=== PATIENT | female | born 1965 | race Caucasian/White ===

== ENCOUNTER 2016-09-15 12:35 | Observation (INO) ==
[2016-09-15] MEDS ORDERED: Ondansetron ODT 4 MG TAB.RAPDIS SL ONE ×2 (13:23→14:45)
--- NOTE | 2016-09-15 13:23 | Emergency Department Note ---
Disposition Clinical Impression: Chest pain Qualifiers: Chest pain type: precordial pain Qualified Code(s): R07.2 - Precordial pain Disposition: Admitted As Inpatient Condition: Fair Time of Disposition: 14:52 Chest Pain HPI - General Chief Complaint: ED Chest Pain Stated Complaint: chest pain Time Seen by Provider: 09/15/16 12:44 Source: patient Mode of arrival: ambulatory Limitations: no limitations Vital Signs Reviewed: Yes Nursing Notes Reviewed: Yes - History of Present Illness HPI Narrative: 51-year-old female pack per day smoker and COPD presents to the ED with chest pain. She was seen by her primary care physician today Dr. Nichols complaining of chest pain for over 2 weeks, last episode at 1000 this morning. She has been also feeling more fatigued and lightheaded as well during the past 2 weeks with decreased appetite. Reports intermittent left-sided chest pain with minimal exertion that feels like something is sitting on her chest, with radiation upper neck and down her left shoulder. Feelings of lightheadedness occur when she stands up for resolves with time. She denies any recent fevers or recent illness. Admits to a smokers cough and COPD but does not use her inhalers regularly. She reports shortness of breath, diaphoresis and nausea when this happens. It comes on for 2 to 3 minutes at a time and resolves with rest. She denies any history of cardiac ischemic disease. Denies a history of stress test or heart catheterization. Father had bypass at the age of 72. Denies any history of blood clots, recent long-distance travel, surgery, control, active cancer. Severity scale (1-10): 7 - Related Data Home Medications Medication Instructions Recorded Confirmed Aspirin 81 mg PO DAILY 09/15/16 09/15/16 Escitalopram [Lexapro] 2.5 mg PO DAILY 09/15/16 09/15/16 Gabapentin [Neurontin] 800 mg PO TID 09/15/16 09/15/16 Ibuprofen [Motrin] 400 mg PO Q8HR 09/15/16 09/15/16 Multivitamin [Multi-Day Vitamins] 1 tab PO DAILY 09/15/16 09/15/16 Allergies Allergy/AdvReac Type Severity Reaction Status Date / Time acetaminophen [From Tylenol] Allergy Confusion Verified 09/15/16 12:42 All systems ED: reviewed and negative except as stated. Constitutional: Reports: weakness. Denies: fever, chills ENT ED: Denies: congestion Cardiovascular: Reports: chest pain. Denies: palpitations, dyspnea on exertion Respiratory: Reports: dyspnea. Denies: cough Gastrointestinal: Reports: nausea. Denies: abdominal pain, vomiting, diarrhea Genitourinary: Denies: urgency, dysuria Integumentary: Denies: rash, abrasion Chest Pain PMH - Past Medical History Medical history: Reports: arthritis, COPD, GERD, GI bleed, seizures Surgical history: Reports: colectomy, hysterectomy Psychiatric history: Reports: anxiety, depression - Social History Smoking Status: Current every day smoker Alcohol use: Reports: none Drug use: Reports: none Physical Exam - General Limitations: no limitations General appearance: alert, in no apparent distress - Head Head exam: atraumatic, normocephalic, normal inspection - Eye Eye exam: Present: normal appearance, PERRL, EOMI - ENT ENT exam: normal exam, normal oropharynx, mucous membranes moist - Neck Neck exam: Present: normal inspection, full ROM, trachea midline - Chest Chest inspection: Present: normal inspection, symmetric chest wall rise, tenderness (left chest wall, not the same chest pain) - Respiratory Respiratory exam: Present: normal lung sounds bilaterally. Absent: respiratory distress, wheezes - Cardiovascular Cardiovascular exam: Present: regular rate, normal rhythm, normal heart sounds. Absent: systolic murmur, diastolic murmur - Abdominal Exam Abdominal exam: Present: soft, Non-Tender, normal bowel sounds. Absent: tenderness, distention, guarding, rebound, rigidity - Extremities Exam Extremities exam: Present: normal inspection, full ROM, normal capillary refill. Absent: tenderness, pedal edema, calf tenderness - Back Exam Back exam: Present: normal inspection, full ROM. Absent: tenderness, CVA tenderness (R), CVA tenderness (L) - Neurological Exam Neurological exam: Present: alert, oriented X3 - Psychiatric Psychiatric exam: Present: normal affect, normal mood - Skin Skin exam: Present: warm, dry, intact, normal color. Absent: rash, cyanosis Course Course Narrative: 51-year-old female presents ED with chest pain that is ongoing for past 2 weeks. She has initial HEART score of 4 pending troponin. Was seen and evaluated at her primary care physician's office today when she had a episode of chest pain lasted a few minutes. Reports no history of cardiac workup in the past. She appears in no acute distress. Vitals are stable. Heart's regular rate and rhythm. Lungs are clear to auscultation bilaterally. Abdomen is soft nontender nondistended. Legs are non-edematous without any tenderness. Neurologic exam is normal without any focal neural deficits. Chest pain workup initiated. Will likely admit patient for further workup. - Reevaluation(s) Reevaluation #1: Troponin is negative. Chest x-ray is unremarkable. EKG shows some T-wave inversion in V1/V2. HEART score 4. No history of cardiac workup. Patient remains chest pain free. Will admit for chest pain rule out ACS. Hospitalist paged for admission. Time: 14:52 - Consultations Consultation #1: Spoke with on-call hospitalist leigha Barrios to admit for chest pain R/O ACS. No further orders at this time Time: 14:52 Vital Signs Temperature 97.3 F L 09/15/16 12:39 Pulse Rate 75 09/15/16 12:39 Respiratory Rate 16 09/15/16 12:39 Blood Pressure 120/82 09/15/16 12:39 O2 Sat by Pulse Oximetry 99 09/15/16 12:39 Temperature 97.6 F 09/15/16 18:25 Pulse Rate 65 09/15/16 18:25 Respiratory Rate 16 09/15/16 18:25 Blood Pressure 111/71 09/15/16 18:25 O2 Sat by Pulse Oximetry 96 09/15/16 18:25 Oxygen Delivery Oxygen Delivery Room Air Chest Pain - Medical Records Medical records reviewed: Yes I reviewed the patient's medical records. - Lab Data Lab results reviewed: Yes I reviewed the patient's lab results. Result diagrams: 09/15/16 13:00 09/15/16 13:00 Lab Results 09/15/16 09/15/16 09/15/16 Range/Units 13:00 13:00 13:00 WBC 7.1 (4.3-11.1) K/mcL RBC 4.47 (3.82-4.97) M/mcL Hgb 14.4 (11.5-15.4) g/dL Hct 42.7 (35.3-44.9) % MCV 95.5 (83.0-100.0) fL MCH 32.2 (28.0-33.3) pg MCHC 33.7 (31.6-35.5) g/dL RDW 12.5 (11.5-14.5) % Plt Count 254 (140-400) K/mcL MPV 11.1 (9.4-12.4) fL Immature Gran % 0.3 (0-4) % Seg Neutrophils % 55.0 % Lymphocytes % 36.3 % Monocytes % 5.6 % Eosinophils % 2.0 % Basophils % 0.8 % Neutrophils # 3.9 (1.6-8.9) K/mcL Lymphocytes # 2.6 (0.6-4.6) K/mcL Monocytes # 0.4 (0.0-1.3) K/mcL Eosinophils # 0.1 (0.0-0.6) K/mcL Basophils # 0.1 (0.0-0.2) K/mcL Sodium 140 (136-145) mEq/L Potassium 3.9 (3.5-4.5) mEq/L Chloride 104 (98-109) mEq/L Carbon Dioxide 28 (19-29) mEq/L BUN 8 (7-20) mg/dL Creatinine 0.75 (0.57-1.11) mg/dL Est GFR ( Amer) > 60 (> 60) Est GFR (Non-Af Amer) > 60 (> 60) BUN/Creatinine Ratio 11 (6-26) Glucose 111 H (70-99) mg/dL Est Mean Plasma Glucose mg/dl Hemoglobin A1c ( - 5.6) % Calculated Osmolality 289 (280-300) Calcium 9.4 (8.6-10.8) mg/dL Troponin I 0.00 (0-0.03) ng/mL TSH (0.350-4.840) mcIU/mL Free T4 (0.70-1.48) ng/dl 09/15/16 09/15/16 Range/Units 13:00 13:00 WBC (4.3-11.1) K/mcL RBC (3.82-4.97) M/mcL Hgb (11.5-15.4) g/dL Hct (35.3-44.9) % MCV (83.0-100.0) fL MCH (28.0-33.3) pg MCHC (31.6-35.5) g/dL RDW (11.5-14.5) % Plt Count (140-400) K/mcL MPV (9.4-12.4) fL Immature Gran % (0-4) % Seg Neutrophils % % Lymphocytes % % Monocytes % % Eosinophils % % Basophils % % Neutrophils # (1.6-8.9) K/mcL Lymphocytes # (0.6-4.6) K/mcL Monocytes # (0.0-1.3) K/mcL Eosinophils # (0.0-0.6) K/mcL Basophils # (0.0-0.2) K/mcL Sodium (136-145) mEq/L Potassium (3.5-4.5) mEq/L Chloride (98-109) mEq/L Carbon Dioxide (19-29) mEq/L BUN (7-20) mg/dL Creatinine (0.57-1.11) mg/dL Est GFR ( Amer) (> 60) Est GFR (Non-Af Amer) (> 60) BUN/Creatinine Ratio (6-26) Glucose (70-99) mg/dL Est Mean Plasma Glucose 105 mg/dl Hemoglobin A1c 5.3 ( - 5.6) % Calculated Osmolality (280-300) Calcium (8.6-10.8) mg/dL Troponin I (0-0.03) ng/mL TSH 1.851 (0.350-4.840) mcIU/mL Free T4 0.96 (0.70-1.48) ng/dl - Radiology Data Radiology results reviewed: Yes I reviewed the patient's radiology results. Chest X-Ray 09/15/16 12:45 IMPRESSION: No acute cardiac or pulmonary disease. D/ / Elvin Jones MD / Elvin Jones MD Interpreting Provider: Elvin Jones MD - EKG Data EKG attestation: Yes I reviewed and interpreted this EKG. EKG results narrative: EKG performed 1250 normal sinus rhythm 65 bpm, good R-R wave progression, a possible right ventricular conduction delay seen in V1, normal axis, there are no ST elevations or depressions, T-wave inversions in V1/V2. Intervals are within normal limits AK interval 174 QRS 83 QT QTC 381 392. No old EKG available for comparison. No acute ischemic changes. Heart Score - Score History: Moderately Suspicious EKG: Non Specific repolarisation Disturbance Age: 45-65 Risk Factors: 1-2 risk factors Troponin: Less than normal limit HEART Score Total: 4 Attestation Statement - Attestation Attestation: For this encounter, I have reviewed the resident, ACLS SPECIALIST, or PA documentation, treatment plan, and medical decision making; and I have had face to face time with this patient. 51 yo female presents with complaints of chest pain. intermittent over past couple weeks, lasts two to three minutes at a time, associated with SOB, n/v, diaphoresis. pain free in the ED. Pt reports increased fatigue and weakness. previous tobacco use. no cardiac evaluation in the past. Initial troponin negative. EKG shows rate of 65 with T-wave inversions in V1 and V2 without evidence of STEMI. Patient will be admitted to the hospital for further care and evaluation of her chest pain to rule out ACS.
[2016-09-15 13:30] LABS: Basophils # 0.1 K/mcL (0.0-0.2); Basophils % 0.8 %; Eosinophils # 0.1 K/mcL (0.0-0.6); Hematocrit 42.7 % (35.3-44.9); Hemoglobin 14.4 g/dL (11.5-15.4); Immature Granulocytes % 0.3 % (0-4); Lymphocytes # 2.6 K/mcL (0.6-4.6); Lymphocytes % 36.3 %; Mean Corpuscular HGB Conc 33.7 g/dL (31.6-35.5); Mean Corpuscular Hemoglobin 32.2 pg (28.0-33.3); Mean Corpuscular Volume 95.5 fL (83.0-100.0); Mean Platelet Volume 11.1 fL (9.4-12.4); Monocytes # 0.4 K/mcL (0.0-1.3); Monocytes % 5.6 %; Neutrophils # 3.9 K/mcL (1.6-8.9); Platelet Count 254 K/mcL (140-400); Red Blood Count 4.47 M/mcL (3.82-4.97); Red Cell Distribution Width 12.5 % (11.5-14.5)
[2016-09-15 13:35] LABS: BUN/Creatinine Ratio 11 (6-26); Blood Urea Nitrogen 8 mg/dL (7-20); Calcium 9.4 mg/dL (8.6-10.8); Carbon Dioxide 28 mEq/L (19-29); Chloride 104 mEq/L (98-109); Glucose 111 mg/dL (70-99); Osmolality,Calculated 289 (280-300); Potassium 3.9 mEq/L (3.5-4.5); Sodium 140 mEq/L (136-145); eGFR For African Americans > 60 (> 60); eGFR For Non-African Americans > 60 (> 60)
[2016-09-15] MEDS ORDERED: Aspirin 81 MG TAB.CHEW PO STA (14:31)
--- NOTE | 2016-09-15 16:25 | Internal Med History&Physical ---
Date of Encounter: 09/15/16 Time of Encounter: 16:00 Assessment and Plan (1) Chest pain Current visit: Yes Status: Acute Observation. Monitor with telemetry. Trend troponins. Plan for stress test in the morning if troponins are negative. Monitor vital signs closely. Check A1c and lipid profile. Pain could also be related to her gastroesophageal reflux disease as she takes Motrin 3 times daily. We will start her on PPI. Qualifiers: Chest pain type: precordial pain Qualified Code(s): R07.2 - Precordial pain (2) Fibromyalgia Current visit: Yes Status: Chronic Continue home medications for this condition but hold Motrin for now. (3) COPD (chronic obstructive pulmonary disease) Current visit: Yes Status: Chronic Patient with a history of COPD. Not in acute exacerbation at this time. Will place on bronchodilator treatments as needed. Qualifiers: COPD type: unspecified COPD Qualified Code(s): J44.9 - Chronic obstructive pulmonary disease, unspecified (4) Tobacco abuse Current visit: Yes Status: Chronic Counseled about cessation. Internal Medicine - H&P: HPI Chief complaint: Chest pain Admitted From: Emergency Dept Plans for Post Hospital Care: Home History of present illness: Ms. Bradford is a 51 year old female with a history of fibromyalgia and a chronic smoker presented to the ER with complaints of chest pain. Symptoms have been going on for about 2 weeks. She has a constant pressure that is always there and then she develops pain that central in location and radiates up her jaw and down her left arm. It is very severe in intensity, 10 out of 10 in severity and lasts a few minutes. She gets occasional palpitations and has a cough which is chronic for her. She denies any shortness of breath. She occasionally gets pedal edema. No orthopnea or PND. No exertional dyspnea. Her pain does get worse with exertion. She had gone to her doctor for regular appointment and was sent here after she described chest pain. Patient takes ibuprofen 800 mg 3 times daily fibromyalgia pain. She does have some heartburn and reflux disease. She is not on any PPI. She had an upper GI endoscopy and colonoscopy last year which did not show any ulcers. Past Med Surg Social Fam HX - Past Medical History Medical history: arthritis, COPD, GERD, GI bleed, seizures Psychiatric history: anxiety, depression - Past Surgical History Surgical History: colectomy, hysterectomy - Social History Smoking Status: Current every day smoker Smokeless Tobacco Status: No Alcohol use: none Drug use: none - Additional Family History Additional family history: History of coronary artery disease in family Internal Medicine - H&P: Meds Aspirin 81 mg PO DAILY 09/15/16 [History] Escitalopram [Lexapro] 2.5 mg PO DAILY 09/15/16 [History] Gabapentin [Neurontin] 800 mg PO TID 09/15/16 [History] Ibuprofen [Motrin] 400 mg PO Q8HR 09/15/16 [History] Multivitamin [Multi-Day Vitamins] 1 tab PO DAILY 09/15/16 [History] Allergies acetaminophen [From Tylenol] Allergy (Verified 09/15/16 12:42) Confusion All Systems PM: A 10-system review of systems was performed and is negative for pertinent findings except as documented above in the HPI. - Constitutional Constitutional: no chills, no fever(s), no night sweats - EENT Eyes: no change in vision, no discharge, no pain, no photophobia Ears: no ear discharge, no ear pain, no tinnitus Nose, mouth and throat: no dysphagia, no nasal discharge, no neck pain, no sore throat - Cardiovascular Cardiovascular ROS IM: chest pain, no diaphoresis, no dyspnea, no lightheadedness, no palpitations, no syncope - Respiratory Respiratory: cough, no dyspnea, no wheezing, no excessive phlegm production - Gastrointestinal Gastrointestinal: no abdominal pain, no diarrhea, no hematemesis, no hematochezia, no melena, no nausea, no vomiting - Genitourinary Genitourinary: no change in urinary stream, no dysuria, no flank pain, no hematuria - Musculoskeletal Musculoskeletal ROS IM: no numbness, no tingling - Integumentary Integumentary IM: no rash, no unusual bruising - Neurological Neurological ROS: no confusion, no convulsions, no focal weakness, no numbness, no tingling, no tremor(s) - Hematologic/Lymphatic Hematologic/Lymphatic: no easy bruising - Constitutional Vitals: Temp Pulse Resp BP Pulse Ox 97.3 F L 62 16 113/89 97 09/15/16 12:39 09/15/16 14:48 09/15/16 14:48 09/15/16 14:48 09/15/16 14:48 General appearance: Present: cooperative, mild distress, A&O X 3, answers questions appropriately - Neck Neck exam general surgery: Present: supple, trachea midline. Absent: lymphadenopathy - Respiratory Respiratory exam: Present: CTAB. Absent: accessory muscle use, rales, rhonchi, wheezes - Cardiovascular Cardiovascular exam: Present: RRR, +S1, +S2. Absent: diastolic murmur, gallop, rubs, systolic murmur - GI/Abdominal GI/Abdominal exam: Present: normal bowel sounds, soft, no peritoneal signs. Absent: distended, tenderness - Extremities Exam Extremities exam: Present: warm, radial pulses palpable and symetrical. Absent : calf tenderness, cyanotic, pedal edema - Neurological Exam Neurological exam: Present: CN II-XII intact, oriented X3, no focal deficits. Absent: pronater drift, facial droop, speech deficit - Psychiatric Psychiatric exam: Present: normal affect, normal mood - Skin Skin exam: Present: dry, intact Internal Med - H&P Results - Labs CBC & Chem 7: 09/15/16 13:00 09/15/16 13:00 Labs: Short CBC 09/15/16 Range/Units 13:00 WBC 7.1 (4.3-11.1) K/mcL Hgb 14.4 (11.5-15.4) g/dL Hct 42.7 (35.3-44.9) % Plt Count 254 (140-400) K/mcL Neutrophils # 3.9 (1.6-8.9) K/mcL BMP 09/15/16 13:00 Sodium 140 Potassium 3.9 Chloride 104 Carbon Dioxide 28 BUN 8 Creatinine 0.75 Glucose 111 H Calcium 9.4 Cardiac Enzymes 09/15/16 Range/Units 13:00 Troponin I 0.00 (0-0.03) ng/mL - EKG Data EKG comments: 09/15/16 16:31 Normal sinus rhythm - Impressions ITS Impressions Chest X-Ray 09/15/16 12:45 IMPRESSION: No acute cardiac or pulmonary disease. D/ / Elvin Jones MD / Elvin Jones MD Interpreting Provider: Elvin Jones MD - Attending Attestation This document has been at least partially created by [employer] recognition technology by Dr. Gar. Errors in grammar, wording or other phrases may exist. If errors are found after the documentation is signed, they will be addressed individually in the addendum section of this document when appropriate.
[2016-09-15] MEDS ORDERED: Ondansetron 4 MG/2 ML VIAL IVP PRN (16:38)
[2016-09-15] MEDS ORDERED: Nitroglycerin 0.4 MG TAB.SUBL SL PRN (16:40)
[2016-09-15] MEDS ORDERED: 0.9 % Sodium Chloride 1,000 ML IVC SCH (16:45)
[2016-09-15 17:53] LABS: Hemoglobin A1C 5.3 %
[2016-09-15 18:20] LABS: Thyroid Stimulating Hormone 1.851 mcIU/mL (0.350-4.840)
[2016-09-15] MEDS: Gabapentin 400 MG CAPSULE PO SCH (21:26)
[2016-09-16] MEDS ORDERED: Regadenoson 0.4 MG/5 ML SYRINGE IVP ONE (06:14)
[2016-09-16 06:53] LABS: Chol/HDL Ratio 3.3 (0-4.9)
[2016-09-16] MEDS ORDERED: Aspirin Enteric Coated 81 MG Tablet PO SCH (09:00)
--- NOTE | 2016-09-16 12:25 | Electrocardiograph Report ---
[place] [facility] Test Date: 2016-09-15 Pat Name: Alcira Bradford Department: 105 Room: 3B53 Gender: F Master Certified Rv Technician: : 1965 Requested By: Carlos Mei Order Number: [id number] Reading MD: Navjot Thacker DO Measurements Intervals [place] Rate: 65 P: 79 [place]: 174 QRS: 44 QRSD: 83 T: 54 QT: 381 QTc: 392 Interpretive Statements SINUS RHYTHM POSSIBLE RIGHT VENTRICULAR CONDUCTION DELAY [RSR (QR) IN V1/V2] Electronically Signed On 09-16-2016 12:23:51 EDT by Navjot Thacker DO
[2016-09-16] MEDS: Gabapentin 400 MG CAPSULE PO SCH ×2 (15:01→15:04)
--- NOTE | 2016-09-16 15:49 | Electrocardiograph Report ---
[address] [place] [address] Test Date: 2016-09-16 Pat Name: Alcira Bradford Department: 113 Room: 3B Gender: F Training Designer: : 1965 Requested By: Frankie Gar Order Number: [id number] Reading MD: Kelsy Avalos Measurements Intervals [place] Rate: 56 P: 80 [place]: 215 QRS: -12 QRSD: 99 T: 46 QT: 416 QTc: 408 Interpretive Statements SINUS BRADYCARDIA WITH FIRST DEGREE AV BLOCK Electronically Signed On 09-16-2016 15:47:46 EDT by Kelsy Avalos
--- NOTE | 2016-09-16 17:44 | Nuclear Medicine Stress Report ---
Regadenoson Nuclear Stress Name: Alcira Bradford Date of Study: 09/16/2016 Date: 1965 Ht: 66.0 in Medical Record#: [id number] Age: 51 Wt: 152.0 lb Gender: Female Order #: [id number] Location: [facility] Room: [facility] Supervising Provider: Ruddy Garza CNP Reading Physician: Syeda Mckeon DO Ordering Physician: Pearl Kim CNP Primary Care Physician: Bernarda Nichols MD Stress Technologist: Gala Harp, [place],[facility] Youth Nutritional Monitor: Marycruz Turcios Indications: Chest Pain Impression: Perfusion imaging was negative for ischemia or infarct. Pharmacologic ECG was negative for ischemia at the level of heart rate achieved. Gated EF = >70%. History: History of Smoking Stress Test Summary: Stress Test Type: Pharmacologic Regadenoson 0.4mg/5ml given IV Baseline Information: Initial Heart Rate: 63 Blood Pressure: 100/56 Stress Information: Test Terminated Due to (primary): As per protocol Maximum Blood Pressure: 112/58 Maximum Heart Rate: 97 Percent Maximum Heart Rate Achieved: 58 Double Product: [id number] METS Reached: 1 Symptoms: Nausea Nuclear Summary: SPECT myocardial perfusion imaging using Tc99m Sestamibi given intravenously was performed at rest and following cardiac stress testing. The resting images were obtained following initial dose of 10.2 mCi. Following stress an additional dose of 29.5 mCi was given at peak exercise or 30 seconds post regadenoson infusion. Medication Given: Time Medication Dose Units Route Findings: Stress Note * Resting ECG demonstrated normal sinus rhythm with borderline LAD and poor R wave progression. * Pharmacologic stress ECG is negative for ischemia at level of heart rate achieved. * No arrhythmias were noted during stress. * Patient had no chest pain during stress. Hemodynamic responses * Normal hemodynamic responses to pharmacologic stress. Study Quality * Technically difficult/limited study. Gated EF > 70% * Gated EF > 70%. Left Ventricle * The left ventricle is not dilated. TID * No evidence of transient ischemic dilatation. Lung Uptake * There is no evidence of increase lung uptake. NORMALS * Normal wall motion. * Normal segmental perfusion in stress. * Normal Segmental Perfusion in rest. PERFUSION * There is increased bowel wall uptake in the inferior and inferolateral mead. Other segments demonstrate normal rest and stress perfusion. Updated by Syeda Mckeon on 09/16/2016 5:37:41 PM electronically signed on 09/16/2016 5:39:11 PM with status of Final
--- NOTE | 2016-09-16 18:10 | Discharge Summary ---
Date of Encounter: 09/16/16 Time of Encounter: 17:45 - Discharge Diagnosis (1) Chest pain Priority: Primary Status: Acute Comments: Patient denied chest pain since admission. Chest x-ray negative. Stress test negative. ACS ruled out. Follow-up outpatient. Qualifiers: Chest pain type: precordial pain Qualified Code(s): R07.2 - Precordial pain (2) Orthostatic hypotension Priority: Primary Status: Resolved Comments: Patient stating she had orthostatic hypotension in the emergency department, I do not see any charting of orthostatic vital signs however they were repeated on day of discharge and were unremarkable. Encouraged to drink water and Gatorade, follow-up outpatient (3) Fibromyalgia Priority: Secondary Status: Chronic Comments: Taking Motrin 3 times a day, PPI added, strongly suspect esophagitis/gastritis (4) COPD (chronic obstructive pulmonary disease) Priority: Secondary Status: Chronic Comments: No acute exacerbation. Patient denies shortness of breath above her normal throughout this admission. Qualifiers: COPD type: unspecified COPD Qualified Code(s): J44.9 - Chronic obstructive pulmonary disease, unspecified (5) Tobacco abuse Priority: Secondary Status: Chronic Comments: Declined counseling - Discharge Medications Prescriptions: Omeprazole [PriLOSEC] 40 mg PO DAILY@0630 #60 capsule.dr Ware Medications: Aspirin 81 mg PO DAILY 09/15/16 [History] Escitalopram [Lexapro] 2.5 mg PO DAILY 09/15/16 [History] Gabapentin [Neurontin] 800 mg PO TID 09/15/16 [History] Ibuprofen [Motrin] 400 mg PO Q8HR 09/15/16 [History] Multivitamin [Multi-Day Vitamins] 1 tab PO DAILY 09/15/16 [History] Omeprazole [PriLOSEC] 40 mg PO DAILY@0630 #60 capsule. 09/16/16 [Rx] Allergies/Adverse Reactions: Allergies acetaminophen [From Tylenol] Allergy (Verified 09/15/16 12:42) Confusion Date of admission: 09/15/16 16:46 Primary care physician: Chelsea Nichols MD Discharging clinician: Uma Jiang Anticipated date of discharge: 09/16/16 - Patient Status Disposition: Home, Self-Care Condition: Fair Functional capacity at discharge: independent ambulation Overall status at discharge: patient is back to baseline - Discharge Instructions Instructions: Chest Pain (DC), Chronic Obstructive Pulmonary Disease (DC) Follow Up With: Chelsea Nichols MD [Primary Care Provider] - Additional Instructions: follow-up with primary care provider within one to 2 weeks - Diet and Activity Activity: increase activity as tolerated Diet: regular diet Hospital course: Ms. Bradford is a 51 year old female with past medical history of fibromyalgia, GERD, COPD, GI bleed, seizures, status post colectomy, status post hysterectomy , tobacco abuse. Patient presented to the emergency department chief complaint chest pain intermittently for 2 weeks. Patient endorsing constant pressure that is always there but developed into pain and is centrally located and radiates up her jaw and down her left arm. Patient stating it was severe in intensity and lasted a few minutes at a time. Patient also endorsed occasional palpitations and a chronic cough. She denied shortness of breath above her norm or pedal edema. Pain is not worsened with exertion. Workup in the emergency department unremarkable. Chest x-ray negative. She was admitted to the hospitalist service for further evaluation and management. Troponins negative. Nuclear stress test negative for ischemia or infarct and revealed an ejection fraction greater than 70%. Acute coronary syndrome ruled out. Of note , patient is on ibuprofen 3 times a day for her fibromyalgia pain and her symptoms are consistent with heartburn and GERD. She was not on any PPI and was started on omeprazole. She was able to tolerate a regular diet while admitted. Of note, patient stating at time of discharge that she had orthostatic hypotension while in the emergency department however unable to find that in the chart. Orthostatic vital signs were repeated prior to discharge and were normal. She was discharged home in stable condition with close outpatient follow-up recommended. ITS Impressions Chest X-Ray 09/15/16 12:45 IMPRESSION: No acute cardiac or pulmonary disease. D/ / Elvin Jones MD / Elvin Jones MD Interpreting Provider: Elvin Jones MD Regadenoson nuclear stress test impression: Perfusion imaging was negative for ischemia or infarct. Pharmacologic ECG was negative for ischemia at the level of heart rate achieved. Gated ejection fraction is greater than 70%. - Time Spent with Patient Total time spent providing and/or coordinating discharge services: - Constitutional Vitals: Temp Pulse Resp BP Pulse Ox 98.3 F 59 15 103/64 96 09/16/16 15:48 09/16/16 15:48 09/16/16 15:48 09/16/16 15:48 09/16/16 15:48 General appearance: Present: cooperative, A&O X 3, pleasant, no acute distress, answers questions appropriately - Head Head exam: Present: atraumatic, normocephalic - Eye Eye exam: Present: PERRL, conjuntiva pink, sclera anicteric Pupils: Present: PERRL - Neck Neck exam general surgery: Present: supple, trachea midline. Absent: lymphadenopathy - Respiratory Respiratory exam: Present: decreased breath sounds. Absent: accessory muscle use, rales, respiratory distress, rhonchi, wheezes - Cardiovascular Cardiovascular exam: Present: RRR, +S1, +S2. Absent: diastolic murmur, gallop, rubs, systolic murmur - GI/Abdominal GI/Abdominal exam: Present: normal bowel sounds, soft, no peritoneal signs. Absent: distended, tenderness - Extremities Exam Extremities exam: Present: warm, radial pulses palpable and symetrical. Absent : calf tenderness, cyanotic, pedal edema - Neurological Exam Neurological exam: Present: alert, CN II-XII intact, normal gait, oriented X3, no focal deficits, strengths equal and symetr throughout. Absent: pronater drift, facial droop, speech deficit - Skin Skin exam: Present: dry, intact, normal color, warm
[2016-09-16 18:11] VITALS: BP 104/70
== END 2016-09-16 18:50 | disposition home or self-care (01) ==
LOC: 3BNU 12:35 → EMEROO 12:35 → SUATTDRO 16:46 → 3BNU 18:00
PROVIDERS: ADMIT Internal Medicine; ATTEND Nurse Practitioner Family

== ENCOUNTER 2020-02-29 09:53 | Observation (INO) ==
[2020-02-29] MEDS ORDERED: Clindamycin 900 MG/50 ML 900 MG/50 ML IV.SOLN IVPB ONE (10:15)
[2020-02-29] MEDS ORDERED: Ringers Solution, Lactated 1,000 ML IVC SCH ×2 (10:15→16:13)
[2020-02-29] MEDS ORDERED: Famotidine 20 MG/2 ML VIAL IVP ONE (10:39)
[2020-02-29] MEDS ORDERED: *HR* OxyCODONE Immed Rel 5 MG TABLET PO PRN (10:52)
[2020-02-29] MEDS ORDERED: Ondansetron 4 MG/2 ML VIAL IVP ONE (10:52)
[2020-02-29] MEDS ORDERED: *HR* Methadone 5 MG TABLET PO ONE (10:57)
[2020-02-29] MEDS ORDERED: Bacitracin 50,000 UNIT, Polymyxin B Sulfate 500,000 UNIT, Sodium Chloride IRRigation 1,... IR ONE (12:05)
[2020-02-29] MEDS ORDERED: *HR* FentaNYL (PF) 100 MCG/2 ML VIAL ONE (12:30)
[2020-02-29] MEDS ORDERED: *HR* Propofol 200 MG/20 ML VIAL IVP ONE (12:30)
[2020-02-29] MEDS ORDERED: *HR* Midazolam HCl 2 MG/2 ML VIAL ONE (12:30)
[2020-02-29] MEDS ORDERED: Lidocaine -MPF 4% 5 ML AMPUL ONE (12:30)
[2020-02-29] MEDS ORDERED: Lidocaine -MPF 2% 2 ML VIAL ONE (12:30)
[2020-02-29] MEDS ORDERED: Dexamethasone 4 MG/ML VIAL ONE (12:31)
[2020-02-29] MEDS ORDERED: Ondansetron 4 MG/2 ML VIAL ONE (12:31)
[2020-02-29] MEDS ORDERED: Neostigmine Methylsulfate 3 MG/3 ML SYRINGE ONE (13:19)
[2020-02-29] MEDS: *HR* HYDROmorphone PF 0.5 MG/0.5 ML SYRINGE IVP PRN ×3 (14:13→14:31)
[2020-02-29] MEDS ORDERED: Ibuprofen 400 MG TABLET PO PRN (16:13)
[2020-02-29] MEDS ORDERED: Naloxone 0.4 MG/ML INJ IVP PRN (16:13)
[2020-02-29] MEDS: CeFAZolin 2 GM/120 ML BAG IVPB SCH ×2 (19:48→23:49)
[2020-02-29] MEDS: traZODone 50 MG TABLET PO SCH (20:08)
[2020-02-29] MEDS: Psyllium 1 PACKET POWD.PACK PO SCH (20:09)
[2020-02-29] MEDS: *HR* OxyCODONE Immed Rel 5 MG TABLET PO PRN (23:48)
[2020-03-01] MEDS: *HR* OxyCODONE Immed Rel 5 MG TABLET PO PRN ×4 (05:19→22:32)
[2020-03-01] MEDS: Cholecalciferol (D-3) 1,000 UNIT (25MCG) TABLET PO SCH (08:30)
[2020-03-01] MEDS: Psyllium 1 PACKET POWD.PACK PO SCH ×2 (08:31→20:44)
[2020-03-01] MEDS: traZODone 50 MG TABLET PO SCH (20:45)
[2020-03-02] MEDS: *HR* OxyCODONE Immed Rel 5 MG TABLET PO PRN ×2 (03:05→10:24)
[2020-03-02] MEDS: Psyllium 1 PACKET POWD.PACK PO SCH (09:18)
[2020-03-02] MEDS: Cholecalciferol (D-3) 1,000 UNIT (25MCG) TABLET PO SCH (09:18)
[2020-03-02 11:16] VITALS: BP 104/68
== END 2020-03-02 14:58 | disposition home or self-care (01) ==
LOC: 3NENU 09:53 → SAMDAY 09:53 → 3NENU 15:55
PROVIDERS: ADMIT Orthopaedic Surgery Orthopaedic Surgery of the Spine; ATTEND Orthopaedic Surgery Orthopaedic Surgery of the Spine